=== PATIENT | male | born 1940 ===

== ENCOUNTER 2017-12-11 11:44 | Day surgery (SDC) | payer MEDICARE ==
[2017-12-11] MEDS ORDERED: Lidocaine Hydrochloride 10 ML INJ ONE (13:07)
[2017-12-11] MEDS ORDERED: ceFAZolin 1 gm in NS 1 GM/100 ML BAG IVPB ONE (13:07)
[2017-12-11] MEDS ORDERED: Bupivacaine 0.25% 20 ML INJ IJ ONE (13:08)
[2017-12-11] MEDS ORDERED: Propofol 10 mg/ml Inj (20 ML) ONE (13:51)
[2017-12-11] MEDS ORDERED: Midazolam 2 MG/2 ML VIAL ONE (13:51)
[2017-12-11] MEDS ORDERED: Bacitracin 500 Units/gm Oint Foilpak UD ONE (14:07)
[2017-12-11] MEDS ORDERED: HYDROmorphone 0.5 mg/0.5 ml ISec IVP PRN (14:12)
[2017-12-11] MEDS ORDERED: Oxycodone/Acetaminophen 5/325 mg Tab PO PRN (14:49)
[2017-12-11 15:06] VITALS: RESP 10
[2017-12-11 16:00] VITALS: BP 132/64; PULSE 58; TEMP 97.7; O2SAT 99
--- NOTE | 2017-12-12 11:07 | OP ---
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 POSTOPERATIVE DIAGNOSIS: A 5 cm soft tissue tumor in the left leg. PROCEDURE PERFORMED: Wide and deep excision (radical resection), 5 cm soft tissue tumor of the left leg with advancement flap closure. SURGEON: Petey Arredondo MD ANESTHESIA: General. BLOOD LOSS: 40 mL. POSTOPERATIVE CONDITION: Stable. INDICATIONS FOR SURGERY: A 77-year-old male with a painful 5 cm soft tissue mass of the left leg, who now undergoes a wide deep and radical resection. DESCRIPTION OF PROCEDURE: The patient was taken to the operating room. IV sedation was administered, and the left lower extremity was prepped and draped. Local anesthesia was administered, and a generous elliptical incision was made surrounding the mass. This was carried down into the fascial layer. The mass was completely removed into the fascial layer. Bleeding was controlled using the Bovie. A larger bleeding blood vessel was isolated and repaired with Prolene. The wound was then irrigated with saline. A generous full-thickness tissue flaps were raised including fascia. Counter incisions were made, and a 32 sq cm advancement flap closure was performed using multiple layers of Monocryl, subcuticular Monocryl, and skin clips. The patient tolerated the procedure well and returned to recovery room in stable condition. Petey Arredondo MD
== END 2017-12-11 16:00 | disposition home or self-care (01) ==
LOC: C.SDS 11:44
PROVIDERS: ATTEND Surgery
DX: B07.9 Viral wart, unspecified (principal)
CPT/HCPCS: 11406; 13121; 13122; 82948; 88305; J0690; J2250; J2704; J3010

== ENCOUNTER 2018-01-29 11:53 | Inpatient (IN) | payer MEDICARE ==
[2018-01-29 11:53] VITALS: BMI 30.2
--- NOTE | 2018-01-29 12:36 | C.PDOC ---
History Of Present Illness 77 y/o male with a PMHx peripheral vascular disease, presents to the ED for evaluation of bilateral lower extremity cellulitis after failing outpatient treatment. Patient is followed by Dr. Garrett, who sent patient to the ED for admission and IV antibiotics. Otherwise patient denies any fever, chills, nausea, vomiting, chest pain, or SOB. Patient denies hx of hypertension or diabetes. Time Seen by Provider: 01/29/18 12:31 Chief Complaint (Nursing): Lower Extremity Problem/Injury History Per: Patient History/Exam Limitations: no limitations Onset/Duration Of Symptoms: Days Current Symptoms Are (Timing): Still Present Past Medical History Reviewed: Historical Data, Nursing Documentation, Vital Signs Vital Signs: Last Vital Signs Temp 98.3 F 01/29/18 11:59 Pulse 60 01/29/18 11:59 Resp 18 01/29/18 11:59 BP 174/75 H 01/29/18 11:59 Pulse Ox 100 01/29/18 11:59 - Medical History PMH: HTN, Hypercholesterolemia, Peripheral Edema Denies: Diabetes, Chronic Kidney Disease Family History: States: No Known Family Hx Review Of Systems Except As Marked, All Systems Reviewed And Found Negative. Constitutional: Negative for: Fever, Chills Cardiovascular: Negative for: Chest Pain Respiratory: Negative for: Shortness of Breath Gastrointestinal: Negative for: Nausea, Vomiting Musculoskeletal: Positive for: Leg Pain Skin: Positive for: Rash (bilateral lower extremity cellulitis) Neurological: Negative for: Weakness, Numbness Physical Exam - Physical Exam Appears: Non-toxic, No Acute Distress, Other (Obese male) Skin: Warm, Dry Head: Atraumatic, Normacephalic Eye(s): bilateral: Normal Inspection, PERRL, EOMI Oral Mucosa: Moist Neck: Normal ROM Chest: Symmetrical Cardiovascular: Rhythm Regular, No Murmur Respiratory: Normal Breath Sounds, No Rales, No Rhonchi, No Wheezing Gastrointestinal/Abdominal: Soft, No Tenderness, No Distention Extremity: Normal ROM, No Calf Tenderness, No Deformity, Other (Scaly skin changes to the bilateral lower extremities, poorly defined DP pulses) Neurological/Psych: Oriented x3, Normal Speech Gait: Steady ED Course And Treatment O2 Sat by Pulse Oximetry: 100 (RA) Pulse Ox Interpretation: Normal Medical Decision Making Medical Decision Making: Impression: Bilateral LE cellulitis Plan: Blood work, EKG, and CXR ordered and reviewed. Patient admitted under Dr. Arredondo for cellulitis, failed outpatient therapy. Disposition Discussed With Dr.: Petey Arredondo - Disposition Disposition: HOSPITALIZED Disposition Time: 12:45 Condition: GUARDED - Clinical Impression Clinical Impression: Cellulitis of both lower extremities - Scribe Statement The provider has reviewed the documentation as recorded by the Pascale Peguero Provider Attestation: All medical record entries made by the Norbertibsanty were at my direction and personally dictated by me. I have reviewed the chart and agree that the record accurately reflects my personal performance of the history, physical exam, medical decision making, and the department course for this patient. I have also personally directed, reviewed, and agree with the discharge instructions and disposition. Decision To Admit - Pt Status Changed To: Hospital Disposition Of: Inpatient - Admit Certification Admit to Inpatient:: After my assessment, the patient will require hospitalization for at least two midnights. This is because of the severity of symptoms shown, intensity of services needed, and/or the medical risk in this patient being treated as an outpatient. - InPatient: Physician Admission Certification: I certify that this patient requires 2 or more midnights of care for the following reason:: patient admitted for cellulitis lower extremities for IV antibiotics and further management - . Bed Request Type: Regular Patient Diagnosis: Cellulitis of both lower extremities
[2018-01-29 12:52] LABS: BASO # 0.1 K/uL (0.0-0.2); BASO % 1.2 % (0.0-2.0); EOS # 0.3 K/uL (0.0-0.7); EOS % 4.3 % (0.0-4.0); HEMOGLOBIN 11.6 g/dL (12.0-18.0); LYMPH # 1.2 K/uL (1.0-4.3); LYMPH % 19.9 % (20.0-40.0); MEAN CELL VOLUME 82.1 fL (80.0-94.0); MEAN CORPUSCULAR HEMOGLOBIN 26.6 pg (27.0-31.0); MEAN CORPUSCULAR HGB CONC 32.4 g/dL (33.0-37.0); MEAN PLATELET VOLUME 8.6 fL (7.2-11.7); MONO # 0.6 K/uL (0.0-0.8); MONO % 10.2 % (0.0-10.0); NEUT % 64.4 % (50.0-75.0); RBC 4.37 Mil/uL (4.40-5.90); RED CELL DISTRIBUTION WIDTH 17.9 % (11.5-14.5); WHITE BLOOD COUNT 6.2 K/uL (4.8-10.8)
[2018-01-29 13:11] LABS: INR 1.1; PROTHROMBIN TIME 11.6 SECONDS (9.7-12.2)
[2018-01-29 13:20] LABS: ALB/GLOB RATIO 1.2 (1.0-2.1); ALBUMIN 4.1 g/dL (3.5-5.0); ALT/SGPT 21 U/L (21-72); AST/SGOT 23 U/L (17-59); BLOOD UREA NITROGEN 18 mg/dL (9-20); CALCIUM 9.3 mg/dl (8.6-10.4); GFR NON-AFRICAN AMERICAN 58
[2018-01-29 14:00] VITALS: RESP 20
--- NOTE | 2018-01-29 15:13 | RAD ---
Date of service: 01/29/2018 HISTORY: Sepsis Patient COMPARISON: No prior. FINDINGS: LUNGS: The wrong [place] are vascular markings appear borderline prominent the right lung base-however this also projects over an anterior 6th rib and posterior 9th rib-and some summation of all of these osseous structures long with the bronchovascular markings can conceivably contribute to this appearance. Given the history the possibility of a patchy small infiltrate here also needs to be considered. No dense consolidation seen. PLEURA: No significant pleural effusion identified, no pneumothorax apparent. CARDIOVASCULAR: There is presence of aortic atherosclerotic calcification on x-ray. Normal cardiac size. No pulmonary vascular congestion. OSSEOUS STRUCTURES: Thoracic spondylosis. VISUALIZED UPPER ABDOMEN: Normal. OTHER FINDINGS: None. IMPRESSION: Possible trace patchy infiltrate right lung base versus summation effects. Clinical follow-up recommended.
--- NOTE | 2018-01-29 15:30 | CP.PCM.CON ---
History of Present Illness - History of Present Illness History of Present Illness: PGY-1 Medicine Consult Note for Dr. Spaulding Mr. Croft is a 77 year old male PMH hypertension, diabetes, BPH, Alzheimer's, depression, H. pylori consulted for medical clearance for debridement of bilateral LE wounds. Chronic skin changes over the patient's bilateral shins started 2-3 months ago per patient, but over the last year per family. They started to "bubble" 2 months ago, and when they burst would exude minor amounts of pus and blood before scabbing over. Dr. Arredondo did an excisional biopsy of one such wound on 12/11/17. Patient went to Dr. Arredondo's for follow up today, and was sent to the ED for admission for debridement, possible cellulitis. Patient has multiple places where wound is open since he will scratch until the area bleeds, scabs over, and the cycle repeats. Admits to swollen ankles is the skin on his shins worsened. Denies pain, burning, numbness/tingling of the area. Denies fever, headache, chest paint, shortness of breath, abdominal pain, nausea, vomiting, constipation, diarrhea. PMH: HTN, DM, BPH, Alzheimer's, depression, H. pylori (completed triple therapy earlier this month) Med: Losartan/HCTZ 50/12.5 po daily, ASA 81mg po daily, donepezil 10mg po daily, Lexapro 10mg po daily, finasteride 5mg po daily, metoprolol 50mg po bid, simvastatin 40mg po HS, glimepiride 1mg po bid, pantoprazole 40mg po daily All: NKDA FamHx: unknown PSxHx: denies SocHx: denies ever alcohol, illicit drugs. Smoked 1 pack per month from ages 10- 23 (quit over 50 years ago). 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 Lives in apartment with daughter, son-in-law, two grandsons. Review of Systems - Constitutional Constitutional: absent: Fatigue, Fever, Headache, Lethargy, Malaise, Night Sweats, Weakness - EENT Eyes: absent: Blind Spots, Blurred Vision, Diplopia Ears: absent: Decreased Hearing, Tinnitus Nose/Mouth/Throat: absent: Epistaxis, Dysphagia, Odynophagia - Cardiovascular Cardiovascular: Pedal Edema. absent: Chest Pain, Chest Pain at Rest, Dyspnea, Irregular Heart Rhythm, Pain Radiating to Arm/Neck/Jaw, Lightheadedness, Paroxysmal Nocturnal Dyspnea, Syncope - Respiratory Respiratory: absent: Cough, Dyspnea - Gastrointestinal Gastrointestinal: absent: Abdominal Pain, Constipation, Diarrhea, Nausea, Vomiting - Genitourinary Genitourinary: absent: Change in Urinary Stream, Dysuria, Urinary Incontinence, Urinary Frequency, Urinary Hesitance, Urinary Urgency - Musculoskeletal Musculoskeletal: Arthralgias. absent: Myalgias, Neck Pain, Numbness, Tingling - Integumentary Integumentary: Bleeding Lesions, Dry Skin, Pruritus - Neurological Neurological: absent: Numbness, Headaches, Syncope, Tingling - Psychiatric Psychiatric: absent: Anxiety, Depression, Hopelessness - Endocrine Endocrine: absent: Fatigue, Flushing, Palpitations Past Patient History - Infectious Disease Hx of Infectious Diseases: None - Past Medical History & Family History Past Medical History?: Yes Pertinent Family History: unknown - Past Social History Smoking Status: Former Smoker Alcohol: None Drugs: Denies - CARDIAC Hx Hypercholesterolemia: Yes Hx Hypertension: Yes Hx Peripheral Edema: Yes - PULMONARY Hx Respiratory Disorders: No - NEUROLOGICAL Hx Neurological Disorder: Yes (Memory loss) - HEENT Hx HEENT Problems: Yes Hx Cataracts: Yes - RENAL Hx Chronic Kidney Disease: No - ENDOCRINE/METABOLIC Hx Endocrine Disorders: Yes Hx Diabetes Mellitus Type 2: Yes - HEMATOLOGICAL/ONCOLOGICAL Hx Blood Disorders: No - INTEGUMENTARY Hx Dermatological Problems: Yes (Both legs knee to ankle scabbed pruritic areas) - MUSCULOSKELETAL/RHEUMATOLOGICAL Hx Musculoskeletal Disorders: Yes Hx Back Pain: Yes Hx Herniated Disk: Yes (Lumbar) - GASTROINTESTINAL Hx Gastrointestinal Disorders: No - GENITOURINARY/GYNECOLOGICAL Hx Genitourinary Disorders: Yes Hx Prostate Problems: Yes (BPH) - PSYCHIATRIC Hx Psychophysiologic Disorder: No Hx Substance Use: No - SURGICAL HISTORY Hx Surgeries: Yes Other/Comment: Back surgery due to abscess - ANESTHESIA Hx Anesthesia: Yes Hx Anesthesia Reactions: No Hx Malignant Hyperthermia: No Meds Allergies/Adverse Reactions: Allergies Allergy/AdvReac Type Severity Reaction Status Date / Time No Known Allergies Allergy Verified 12/05/17 13:22 Physical Exam - Constitutional Appears: Well, No Acute Distress - Head Exam Head Exam: ATRAUMATIC, NORMOCEPHALIC - Eye Exam Eye Exam: EOMI, Normal appearance, PERRL Pupil Exam: NORMAL ACCOMODATION Additional comments: arcus senilis, glasses - ENT Exam ENT Exam: Mucous Membranes Moist - Respiratory Exam Respiratory Exam: Clear to Auscultation Bilateral, NORMAL BREATHING PATTERN. absent: Rales, Rhonchi, Wheezes - Cardiovascular Exam Cardiovascular Exam: REGULAR RHYTHM, +S1, +S2. absent: Gallop, Rubs, Systolic Murmur - GI/Abdominal Exam GI & Abdominal Exam: Distended, Normal Bowel Sounds, Soft. absent: Guarding, Rebound, Tenderness Additional comments: obese - Extremities Exam Extremities exam: Positive for: normal capillary refill, pedal edema, pedal pulses present. Negative for: calf tenderness Additional comments: peripheral pulses palpable bilaterally (radial, DP, PT) bilateral ankle swelling - Back Exam Back exam: absent: CVA tenderness (L), CVA tenderness (R) - Neurological Exam Neurological exam: Alert, CN II-XII Intact, Normal Gait, Oriented x3, Reflexes Normal - Psychiatric Exam Psychiatric exam: Normal Affect, Normal Mood - Skin Skin Exam: Dry, Warm Additional comments: chronic skin changes in bilateral shins R>L right leg: anterior surface only effected. obvious bleeding wounds where patient admits to scratching off scabs left leg: anterior and lateral surfaces with minimal posterior effected. biopsy site healing well with new keratinization. obvious bleeding wounds where patient admits to scratching off scabs Results - Vital Signs Recent Vital Signs: Last Vital Signs Temp 97.5 F L 01/29/18 14:00 Pulse 61 01/29/18 14:00 Resp 20 01/29/18 14:00 BP 167/73 H 01/29/18 14:00 Pulse Ox 96 01/29/18 14:00 - Labs Result Diagrams: 01/29/18 12:45 01/29/18 12:45 Labs: Laboratory Results - last 24 hr 01/29/18 01/29/18 01/29/18 12:45 12:45 12:45 WBC 6.2 RBC 4.37 L Hgb 11.6 L Hct 35.9 MCV 82.1 D MCH 26.6 L MCHC 32.4 L RDW 17.9 H Plt Count 221 MPV 8.6 Neut % (Auto) 64.4 Lymph % (Auto) 19.9 L Mcminn % (Auto) 10.2 H Eos % (Auto) 4.3 H Baso % (Auto) 1.2 Neut # (Auto) 4.0 Lymph # (Auto) 1.2 Mcminn # (Auto) 0.6 Eos # (Auto) 0.3 Baso # (Auto) 0.1 PT 11.6 INR 1.1 APTT 34 Sodium 140 Potassium 4.4 Chloride 105 Carbon Dioxide 25 Anion Gap 14 BUN 18 Creatinine 1.2 Est GFR ( Amer) > 60 Est GFR (Non-Af Amer) 58 Random Glucose 89 Calcium 9.3 Phosphorus 3.4 Magnesium 1.9 Total Bilirubin 0.5 AST 23 ALT 21 Alkaline Phosphatase 101 Total Protein 7.7 Albumin 4.1 Globulin 3.6 Albumin/Globulin Ratio 1.2 - EKG Data EKG Interpreted by: ER Physician EKG shows normal: Sinus rhythm Rate: Normal Assessment & Plan - Assessment and Plan (Free Text) Assessment: 77yo male PMH HTN, DM, BPH, Alzheimer's, depression, H. pylori consulted for medical clearance for debridement of bilateral LE wounds. Plan: Bilateral leg wounds, possible cellulitis - all surgical management per Dr. Arredondo - Cardio consulted: Dr. Miguelangel burr appreciated - due to age, Hx HTN, DM, and no access to previous workup will need ECHO and Lexiscan stress test prior to medical clearance - NPO@[place] for Lexiscan stress test (01/30) - Cefazolin 1000mg IVPB q8 (started 01/29) Hypertension - home Hyzaar split into losartan 50mg po daily and HCTZ 12.5mg po daily - home metoprolol 50mg po bid - monitor vitals Diabetes Mellitus - home glimepiride 1mg po bid - home Simvastatin 40mg -> Crestor 10mg po HS - Accucheck ACHS - ISS - hypoglycemia protocol BPH - home finasteride 5mg po daily Alzheimer's dementia - home donepezil 10mg po daily Depression - home Lexapro 10mg po daily PPx - DVT: CI d/t surgery and chronic LE skin changes - GI: home Protonix 40mg po daily - Diet: HHD, NPO@[place] for Lexiscan stress test d/w Dr. Chelly Marshall PGY-1 - Date & Time Date: 01/29/18 Time: 15:00
[2018-01-29] MEDS ORDERED: Dextrose 50% SYRINGE Inj (50 ml) IV PRN (15:40)
[2018-01-29] MEDS ORDERED: Glucagon Recombinant 1 mg Inj IM PRN (15:40)
[2018-01-29] MEDS: (Novolin R) Insulin Human Regular 100 units/ml vial SC SCH ×2 (17:45→22:27)
--- NOTE | 2018-01-29 22:34 | CP.PCM.CON ---
History of Present Illness - History of Present Illness History of Present Illness: CC: Pre Op Cardiac risk assessment Mr. Croft is a 77 year old male PMH hypertension, diabetes, BPH, Alzheimer's, depression, H. pylori consulted for medical clearance for debridement of bilateral LE wounds. Chronic skin changes over the patient's bilateral shins started 2-3 months ago per patient, but over the last year per family. They started to "bubble" 2 months ago, and when they burst would exude minor amounts of pus and blood before scabbing over. Dr. Arredondo did an excisional biopsy of one such wound on 12/11/17. Patient went to Dr. Arredondo's for follow up today, and was sent to the ED for admission for debridement, possible cellulitis. Patient has multiple places where wound is open since he will scratch until the area bleeds, scabs over, and the cycle repeats. Admits to swollen ankles is the skin on his shins worsened. Denies pain, burning, numbness/tingling of the area. Denies fever, headache, chest paint, shortness of breath, abdominal pain, nausea, vomiting, constipation, diarrhea. PMH: HTN, DM, BPH, Alzheimer's, depression, H. pylori (completed triple therapy earlier this month) Med: Losartan/HCTZ 50/12.5 po daily, ASA 81mg po daily, donepezil 10mg po daily, Lexapro 10mg po daily, finasteride 5mg po daily, metoprolol 50mg po bid, simvastatin 40mg po HS, glimepiride 1mg po bid, pantoprazole 40mg po daily All: NKDA FamHx: unknown PSxHx: denies SocHx: denies ever alcohol, illicit drugs. Smoked 1 pack per month from ages 10- 23 (quit over 50 years ago). 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 Lives in apartment with daughter, son-in-law, two grandsons. Review of Systems - Constitutional Constitutional: absent: Fatigue, Fever, Headache, Lethargy, Malaise, Night Sweats, Weakness - EENT Eyes: absent: Blind Spots, Blurred Vision, Diplopia Ears: absent: Decreased Hearing, Tinnitus Nose/Mouth/Throat: absent: Epistaxis, Dysphagia, Odynophagia - Cardiovascular Cardiovascular: Pedal Edema. absent: Chest Pain, Chest Pain at Rest, Dyspnea, Irregular Heart Rhythm, Pain Radiating to Arm/Neck/Jaw, Lightheadedness, Paroxysmal Nocturnal Dyspnea, Syncope - Respiratory Respiratory: absent: Cough, Dyspnea - Gastrointestinal Gastrointestinal: absent: Abdominal Pain, Constipation, Diarrhea, Nausea, Vomiting - Genitourinary Genitourinary: absent: Change in Urinary Stream, Dysuria, Urinary Incontinence, Urinary Frequency, Urinary Hesitance, Urinary Urgency - Musculoskeletal Musculoskeletal: Arthralgias. absent: Myalgias, Neck Pain, Numbness, Tingling - Integumentary Integumentary: Bleeding Lesions, Dry Skin, Pruritus - Neurological Neurological: absent: Numbness, Headaches, Syncope, Tingling - Psychiatric Psychiatric: absent: Anxiety, Depression, Hopelessness - Endocrine Endocrine: absent: Fatigue, Flushing, Palpitations Past Patient History - Infectious Disease Hx of Infectious Diseases: None - Past Medical History & Family History Past Medical History?: Yes Pertinent Family History: unknown - Past Social History Smoking Status: Former Smoker Alcohol: None Drugs: Denies - CARDIAC Hx Hypercholesterolemia: Yes Hx Hypertension: Yes Hx Peripheral Edema: Yes - PULMONARY Hx Respiratory Disorders: No - NEUROLOGICAL Hx Neurological Disorder: Yes (Memory loss) - HEENT Hx HEENT Problems: Yes Hx Cataracts: Yes - RENAL Hx Chronic Kidney Disease: No - ENDOCRINE/METABOLIC Hx Endocrine Disorders: Yes Hx Diabetes Mellitus Type 2: Yes - HEMATOLOGICAL/ONCOLOGICAL Hx Blood Disorders: No - INTEGUMENTARY Hx Dermatological Problems: Yes (Both legs knee to ankle scabbed pruritic areas) - MUSCULOSKELETAL/RHEUMATOLOGICAL Hx Musculoskeletal Disorders: Yes Hx Back Pain: Yes Hx Herniated Disk: Yes (Lumbar) - GASTROINTESTINAL Hx Gastrointestinal Disorders: No - GENITOURINARY/GYNECOLOGICAL Hx Genitourinary Disorders: Yes Hx Prostate Problems: Yes (BPH) - PSYCHIATRIC Hx Psychophysiologic Disorder: No Hx Substance Use: No - SURGICAL HISTORY Hx Surgeries: Yes Other/Comment: Back surgery due to abscess - ANESTHESIA Hx Anesthesia: Yes Hx Anesthesia Reactions: No Hx Malignant Hyperthermia: No Meds Allergies/Adverse Reactions: Allergies Allergy/AdvReac Type Severity Reaction Status Date / Time No Known Allergies Allergy Verified 12/05/17 13:22 Physical Exam - Constitutional Appears: Well, No Acute Distress - Head Exam Head Exam: ATRAUMATIC, NORMOCEPHALIC - Eye Exam Eye Exam: EOMI, Normal appearance, PERRL Pupil Exam: NORMAL ACCOMODATION Additional comments: arcus senilis, glasses - ENT Exam ENT Exam: Mucous Membranes Moist - Respiratory Exam Respiratory Exam: Clear to Auscultation Bilateral, NORMAL BREATHING PATTERN. absent: Rales, Rhonchi, Wheezes - Cardiovascular Exam Cardiovascular Exam: REGULAR RHYTHM, +S1, +S2. absent: Gallop, Rubs, Systolic Murmur - GI/Abdominal Exam GI & Abdominal Exam: Distended, Normal Bowel Sounds, Soft. absent: Guarding, Rebound, Tenderness Additional comments: obese - Extremities Exam Extremities exam: Positive for: normal capillary refill, pedal edema, pedal pulses present. Negative for: calf tenderness Additional comments: peripheral pulses palpable bilaterally (radial, DP, PT) bilateral ankle swelling - Back Exam Back exam: absent: CVA tenderness (L), CVA tenderness (R) - Neurological Exam Neurological exam: Alert, CN II-XII Intact, Normal Gait, Oriented x3, Reflexes Normal - Psychiatric Exam Psychiatric exam: Normal Affect, Normal Mood - Skin Skin Exam: Dry, Warm Additional comments: chronic skin changes in bilateral shins R>L right leg: anterior surface only effected. obvious bleeding wounds where patient admits to scratching off scabs left leg: anterior and lateral surfaces with minimal posterior effected. biopsy site healing well with new keratinization. obvious bleeding wounds where patient admits to scratching off scabs Results - Vital Signs Recent Vital Signs: Last Vital Signs Temp 97.5 F L 01/29/18 14:00 Pulse 61 01/29/18 14:00 Resp 20 01/29/18 14:00 BP 167/73 H 01/29/18 14:00 Pulse Ox 96 01/29/18 14:00 - Labs Result Diagrams: 01/29/18 12:45 01/29/18 12:45 Labs: Laboratory Results - last 24 hr 01/29/18 01/29/18 01/29/18 12:45 12:45 12:45 WBC 6.2 RBC 4.37 L Hgb 11.6 L Hct 35.9 MCV 82.1 D MCH 26.6 L MCHC 32.4 L RDW 17.9 H Plt Count 221 MPV 8.6 Neut % (Auto) 64.4 Lymph % (Auto) 19.9 L [place] % (Auto) 10.2 H Eos % (Auto) 4.3 H Baso % (Auto) 1.2 Neut # (Auto) 4.0 Lymph # (Auto) 1.2 [place] # (Auto) 0.6 Eos # (Auto) 0.3 Baso # (Auto) 0.1 PT 11.6 INR 1.1 APTT 34 Sodium 140 Potassium 4.4 Chloride 105 Carbon Dioxide 25 Anion Gap 14 BUN 18 Creatinine 1.2 Est GFR ( Amer) > 60 Est GFR (Non-Af Amer) 58 Random Glucose 89 Calcium 9.3 Phosphorus 3.4 Magnesium 1.9 Total Bilirubin 0.5 AST 23 ALT 21 Alkaline Phosphatase 101 Total Protein 7.7 Albumin 4.1 Globulin 3.6 Albumin/Globulin Ratio 1.2 - EKG Data EKG Interpreted by: ER Physician EKG shows normal: Sinus rhythm Rate: Normal Assessment & Plan - Assessment and Plan (Free Text) Assessment: 77yo male PMH HTN, DM, BPH, Alzheimer's, depression, H. pylori consulted for medical clearance for debridement of bilateral LE wounds. Plan: Bilateral leg wounds, possible cellulitis - all surgical management per Dr. Arredondo - due to age, Hx HTN, DM, and no access to previous workup will need ECHO and Lexiscan stress test prior to medical clearance - NPO@[place] for Lexiscan stress test (01/30) - Cefazolin 1000mg IVPB q8 (started 01/29) Hypertension - home Hyzaar split into losartan 50mg po daily and HCTZ 12.5mg po daily - home metoprolol 50mg po bid - monitor vitals Diabetes Mellitus - home glimepiride 1mg po bid - home Simvastatin 40mg -> Crestor 10mg po HS - Accucheck ACHS - ISS - hypoglycemia protocol BPH - home finasteride 5mg po daily Alzheimer's dementia - home donepezil 10mg po daily Depression - home Lexapro 10mg po daily PPx - DVT: CI d/t surgery and chronic LE skin changes - GI: home Protonix 40mg po daily - Diet: HHD, NPO@[place] for Lexiscan stress testCC Past Patient History - Infectious Disease Hx of Infectious Diseases: None - Past Medical History & Family History Past Medical History?: Yes - Past Social History Smoking Status: Former Smoker Alcohol: None Drugs: Denies - CARDIAC Hx Hypercholesterolemia: Yes Hx Hypertension: Yes Hx Peripheral Edema: Yes - PULMONARY Hx Respiratory Disorders: No - NEUROLOGICAL Hx Neurological Disorder: Yes (Memory loss) - HEENT Hx HEENT Problems: Yes Hx Cataracts: Yes - RENAL Hx Chronic Kidney Disease: No - ENDOCRINE/METABOLIC Hx Endocrine Disorders: Yes Hx Diabetes Mellitus Type 2: Yes - HEMATOLOGICAL/ONCOLOGICAL Hx Blood Disorders: No - INTEGUMENTARY Hx Dermatological Problems: Yes (Both legs knee to ankle scabbed pruritic areas) - MUSCULOSKELETAL/RHEUMATOLOGICAL Hx Musculoskeletal Disorders: Yes Hx Back Pain: Yes Hx Herniated Disk: Yes (Lumbar) - GASTROINTESTINAL Hx Gastrointestinal Disorders: No - GENITOURINARY/GYNECOLOGICAL Hx Genitourinary Disorders: Yes Hx Prostate Problems: Yes (BPH) - PSYCHIATRIC Hx Psychophysiologic Disorder: No Hx Substance Use: No - SURGICAL HISTORY Hx Surgeries: Yes Other/Comment: Back surgery due to abscess - ANESTHESIA Hx Anesthesia: Yes Hx Anesthesia Reactions: No Hx Malignant Hyperthermia: No Meds Allergies/Adverse Reactions: Allergies Allergy/AdvReac Type Severity Reaction Status Date / Time No Known Allergies Allergy Verified 12/05/17 13:22 - Medications Medications: Current Medications Aspirin (Aspirin Chewable) 81 mg PO DAILY [facility] Dextrose (Dextrose 50% Inj) 0 ml IV STAT PRN; Protocol PRN Reason: Hypoglycemia Protocol Dextrose (Glutose 15) 0 gm PO ONCE PRN; Protocol PRN Reason: Hypoglycemia Protocol Donepezil HCl (Aricept) 10 mg PO DAILY [facility] Escitalopram Oxalate (Lexapro) 10 mg PO DAILY [facility] Finasteride (Proscar) 5 mg PO DAILY [facility] Glimepiride (Amaryl) 1 mg PO BID [facility] Last Admin: 01/29/18 17:46 Dose: 1 mg Glucagon (Glucagen Diagnostic Kit) 0 mg IM STAT PRN; Protocol PRN Reason: Hypoglycemia Protocol Hydrochlorothiazide (Microzide) 12.5 mg PO DAILY [facility] Dextrose (Dextrose 5% In Water 1000 Ml) 1,000 mls @ 0 mls/hr IV .Q0M PRN; Protocol PRN Reason: Hypoglycemia Protocol Cefazolin Sodium 1,000 mg/ (Sodium Chloride) 50 mls @ 100 mls/hr IVPB Q8H [facility]; Protocol Last Admin: 01/29/18 17:51 Dose: 100 mls/hr Insulin Human Regular (Novolin R) 0 unit SC ACHS [facility]; Protocol Last Admin: 01/29/18 22:27 Dose: Not Given Losartan Potassium (Cozaar) 50 mg PO DAILY [facility] Metoprolol Tartrate (Lopressor) 50 mg PO BID [facility] Last Admin: 01/29/18 17:46 Dose: 50 mg Pantoprazole Sodium (Protonix Ec Tab) 40 mg PO DAILY [facility] Rosuvastatin Calcium (Crestor) 10 mg PO HS [facility] Last Admin: 01/29/18 21:53 Dose: 10 mg Results - Vital Signs Recent Vital Signs: Last Vital Signs Temp 97.9 F 01/29/18 16:00 Pulse 57 L 01/29/18 16:00 Resp 20 01/29/18 16:15 BP 176/85 H 01/29/18 16:00 Pulse Ox 96 01/29/18 16:00 - Labs Result Diagrams: 01/29/18 12:45 01/29/18 12:45 Labs: Laboratory Results - last 24 hr 01/29/18 01/29/18 01/29/18 12:45 12:45 12:45 WBC 6.2 RBC 4.37 L Hgb 11.6 L Hct 35.9 MCV 82.1 D MCH 26.6 L MCHC 32.4 L RDW 17.9 H Plt Count 221 MPV 8.6 Neut % (Auto) 64.4 Lymph % (Auto) 19.9 L [place] % (Auto) 10.2 H Eos % (Auto) 4.3 H Baso % (Auto) 1.2 Neut # (Auto) 4.0 Lymph # (Auto) 1.2 [place] # (Auto) 0.6 Eos # (Auto) 0.3 Baso # (Auto) 0.1 PT 11.6 INR 1.1 APTT 34 Sodium 140 Potassium 4.4 Chloride 105 Carbon Dioxide 25 Anion Gap 14 BUN 18 Creatinine 1.2 Est GFR ( Amer) > 60 Est GFR (Non-Af Amer) 58 POC Glucose (mg/dL) Random Glucose 89 Calcium 9.3 Phosphorus 3.4 Magnesium 1.9 Total Bilirubin 0.5 AST 23 ALT 21 Alkaline Phosphatase 101 Total Protein 7.7 Albumin 4.1 Globulin 3.6 Albumin/Globulin Ratio 1.2 01/29/18 01/29/18 17:02 21:55 WBC RBC Hgb Hct MCV MCH MCHC RDW Plt Count MPV Neut % (Auto) Lymph % (Auto) [place] % (Auto) Eos % (Auto) Baso % (Auto) Neut # (Auto) Lymph # (Auto) [place] # (Auto) Eos # (Auto) Baso # (Auto) PT INR APTT Sodium Potassium Chloride Carbon Dioxide Anion Gap BUN Creatinine Est GFR ( Amer) Est GFR (Non-Af Amer) POC Glucose (mg/dL) 123 H 101 Random Glucose Calcium Phosphorus Magnesium Total Bilirubin AST ALT Alkaline Phosphatase Total Protein Albumin Globulin Albumin/Globulin Ratio
[2018-01-30 07:23] LABS: BASO # 0.1 K/uL (0.0-0.2); BASO % 0.9 % (0.0-2.0); EOS # 0.3 K/uL (0.0-0.7); EOS % 4.9 % (0.0-4.0); HEMOGLOBIN 10.4 g/dL (12.0-18.0); LYMPH # 1.6 K/uL (1.0-4.3); LYMPH % 23.9 % (20.0-40.0); MEAN CELL VOLUME 82.3 fL (80.0-94.0); MEAN CORPUSCULAR HEMOGLOBIN 26.4 pg (27.0-31.0); MEAN CORPUSCULAR HGB CONC 32.1 g/dL (33.0-37.0); MEAN PLATELET VOLUME 8.9 fL (7.2-11.7); MONO # 0.7 K/uL (0.0-0.8); NEUT % 60.3 % (50.0-75.0); RBC 3.95 Mil/uL (4.40-5.90); RED CELL DISTRIBUTION WIDTH 17.7 % (11.5-14.5); WHITE BLOOD COUNT 6.6 K/uL (4.8-10.8)
[2018-01-30 07:44] LABS: ALB/GLOB RATIO 1.1 (1.0-2.1); ALBUMIN 3.3 g/dL (3.5-5.0); ALT/SGPT 24 U/L (21-72); AST/SGOT 22 U/L (17-59); BLOOD UREA NITROGEN 22 mg/dL (9-20); CALCIUM 8.9 mg/dl (8.6-10.4); GFR NON-AFRICAN AMERICAN > 60
[2018-01-30] MEDS: (Novolin R) Insulin Human Regular 100 units/ml vial SC SCH ×2 (07:45→12:08)
--- NOTE | 2018-01-30 09:58 | CP.PCM.PN ---
<Abhinav Vaughan - Last Filed: 01/30/18 13:21> Subjective - Date & Time of Evaluation Date of Evaluation: 01/30/18 Time of Evaluation: 09:53 - Subjective Subjective: Abhinav Vaughan Progress Note for Dr. Spaulding Pt was examined at beside this morning. He reports improvement in the swelling and redness of his legs. He denies any dizziness, chest pain, shortness of breath, abdominal pain, nausea, vomiting, diarrhea, dysuria. Objective - Vital Signs/Intake and Output Vital Signs (last 24 hours): Temp Pulse Resp BP Pulse Ox 97.5 F L 62 20 145/69 99 01/30/18 00:00 01/30/18 00:00 01/30/18 00:00 01/30/18 00:00 01/30/18 00:00 Intake and Output: 01/30/18 01/30/18 06:59 18:59 Intake Total 300 Output Total 600 Balance -300 - Medications Medications: Current Medications Aspirin (Aspirin Chewable) 81 mg PO DAILY [facility] Dextrose (Dextrose 50% Inj) 0 ml IV STAT PRN; Protocol PRN Reason: Hypoglycemia Protocol Dextrose (Glutose 15) 0 gm PO ONCE PRN; Protocol PRN Reason: Hypoglycemia Protocol Donepezil HCl (Aricept) 10 mg PO DAILY [facility] Escitalopram Oxalate (Lexapro) 10 mg PO DAILY [facility] Finasteride (Proscar) 5 mg PO DAILY [facility] Glimepiride (Amaryl) 1 mg PO BID [facility] Last Admin: 01/29/18 17:46 Dose: 1 mg Glucagon (Glucagen Diagnostic Kit) 0 mg IM STAT PRN; Protocol PRN Reason: Hypoglycemia Protocol Hydrochlorothiazide (Microzide) 12.5 mg PO DAILY [facility] Dextrose (Dextrose 5% In Water 1000 Ml) 1,000 mls @ 0 mls/hr IV .Q0M PRN; Protocol PRN Reason: Hypoglycemia Protocol Cefazolin Sodium 1,000 mg/ (Sodium Chloride) 50 mls @ 100 mls/hr IVPB Q8H [facility]; Protocol Last Admin: 01/30/18 08:22 Dose: Not Given Insulin Human Regular (Novolin R) 0 unit SC ACHS [facility]; Protocol Last Admin: 01/30/18 07:45 Dose: Not Given Losartan Potassium (Cozaar) 50 mg PO DAILY [facility] Metoprolol Tartrate (Lopressor) 50 mg PO BID [facility] Last Admin: 01/29/18 17:46 Dose: 50 mg Pantoprazole Sodium (Protonix Ec Tab) 40 mg PO DAILY [facility] Rosuvastatin Calcium (Crestor) 10 mg PO HS [facility] Last Admin: 01/29/18 21:53 Dose: 10 mg - Labs Labs: 01/30/18 07:17 01/30/18 07:17 PT 11.6 SECONDS (9.7-12.2) 01/29/18 12:45 INR 1.1 01/29/18 12:45 APTT 34 SECONDS (21-34) 01/29/18 12:45 - Constitutional Appears: Well, No Acute Distress - Head Exam Head Exam: ATRAUMATIC, NORMOCEPHALIC - Eye Exam Eye Exam: EOMI, Normal appearance, PERRL Pupil Exam: NORMAL ACCOMODATION - ENT Exam ENT Exam: Mucous Membranes Moist - Respiratory Exam Respiratory Exam: Clear to Ausculation Bilateral, NORMAL BREATHING PATTERN. ab sent: Rales, Rhonchi, Wheezes - Cardiovascular Exam Cardiovascular Exam: REGULAR RHYTHM, +S1, +S2. absent: Gallop, Rubs, Murmur - GI/Abdominal Exam GI & Abdominal Exam: Soft, Normal Bowel Sounds. absent: Distended, Firm, Tenderness - Extremities Exam Extremities Exam: Pedal Edema Additional comments: chronic venous stasis changes, xerotic hyperkeratotic plaques, no drainage or surrounding edema - Back Exam Back Exam: NORMAL INSPECTION - Neurological Exam Neurological Exam: Alert, Awake, Oriented x3 - Psychiatric Exam Psychiatric exam: Normal Affect, Normal Mood - Skin Skin Exam: Dry Assessment and Plan - Assessment and Plan (Free Text) Assessment: 77yo male PMH HTN, DM, BPH, Alzheimer's, depression, H. pylori co nsulted for medical clearance for debridement of bilateral LE wounds. ECHO showing normal ejection fraction, pending report for stress test. Plan: B/l LE chronic wounds - Cefazolin 1000mg IVPB q8 (started 01/29) - ECHO: LV nl function and ejection freaction. mild AR, mild MR - f/u Lexiscan report - Cardio consulted: Dr. Means - aminah appreciated - all surgical management per Dr. Arredondo HTN - losartan 50mg po daily - HCTZ 12.5mg po daily - metoprolol 50mg po bid DM - glimepiride 1mg po bid - Crestor 10mg po HS - Accucheck ACHS - ISS - hypoglycemia protocol BPH - finasteride 5mg po daily Alzheimer's dementia - donepezil 10mg po daily Depression - Lexapro 10mg po daily PPx GI: Protonix 40mg po daily DVT: contraindicated this time HHD Pt seen and case discussed with Dr. Spaulding <Carlos Alberto Spaulding Jr. - Last Filed: 02/04/18 15:32> Objective - Vital Signs/Intake and Output Vital Signs (last 24 hours): Temp Pulse Resp BP Pulse Ox 98.2 F 85 20 169/66 H 98 01/30/18 15:58 01/30/18 15:58 01/30/18 15:58 01/30/18 15:58 01/30/18 15:58 - Labs Labs: 01/30/18 07:17 01/30/18 07:17 PT 11.6 SECONDS (9.7-12.2) 01/29/18 12:45 INR 1.1 01/29/18 12:45 APTT 34 SECONDS (21-34) 01/29/18 12:45 Attending/Attestation - Attestation I have personally seen and examined this patient.: Yes I have fully participated in the care of the patient.: Yes I have reviewed all pertinent clinical information, including history, physical exam and plan: Yes Notes (Text): 02/04/18 15:32 reviewed resident note, agree with findings and plan of care.
[2018-01-30] MEDS ORDERED: Home Med 1 UNIT (Valsartan/Hydrochlorothiazide [Valsartan-Hctz 160-12.5 Mg Tab] 1 TAB) PO SCH (10:00)
[2018-01-30] MEDS ORDERED: Pantoprazole 40 mg EC Tab PO SCH (10:00)
--- NOTE | 2018-01-30 12:22 | CARD ---
APPROVED REPORT Date of service: 01/29/2018 EKG Measurement Heart [id number] <Conclusion> Normal sinus rhythm Right bundle branch block Inferior infarct, age undetermined Abnormal ECG
--- NOTE | 2018-01-30 12:51 | CARD ---
APPROVED REPORT Date of service: 01/30/2018 EXAM: Two-dimensional and M-mode echocardiogram with Doppler and color Doppler. Other Information Quality : GoodRhythm : INDICATION Pre-Op 2D DIMENSIONS IVSd1.0 (0.7-1.1cm)Aortic Root (2D)3.7 (2.0-3.7cm) LVDd4.4 (3.9-5.9cm)PWd1.1 (0.7-1.1cm) LA Khmcum78 (18-58mL)LVDs3.0 (2.5-4.0cm) FS (%) 31.9 %LVEF (%)60.2 (>50%) LVEF (Alston's)52.12 %IVC0.00 cm M-Mode DIMENSIONS Left Atrium (MM)4.50 (2.5-4.0cm)IVSd0.81 (0.7-1.1cm) Aortic Root3.61 (2.2-3.7cm)LVDd5.72 (4.0-5.6cm) Aortic Cusp Exc.2.29 (1.5-2.0cm)PWd0.89 (0.7-1.1cm) FS (%) 46 %LVDs3.06 (2.0-3.8cm) LVEF (%)62 (>50%) Aortic Valve AI P 1/2 [id number] Mitral Valve MV E Ecwoxfoe17.6cm/sMV A Nlvqhcgf88.0cm/sE/A ratio1.4 TDI Lateral E' Peak V7.90cm/sMedial E' Peak V6.67cm/sE/Lateral E'11.1 E/Medial E'13.1 Tricuspid Valve TR Peak Jvrqtyhi004ft/sTR Peak Gr.30glRnRBGK66dmTv LEFT VENTRICLE The left ventricle is normal size. There is normal left ventricular wall thickness. The left ventricular function is normal. The left ventricular ejection fraction is within the normal range. No regional wall motion abnormalities noted. The left ventricular diastolic function is normal. No left ventricle thrombus noted on this study. There is no ventricular septal defect visualized. There is no left ventricular aneurysm. There is no mass noted in the left ventricle. RIGHT VENTRICLE The right ventricle is normal size. There is normal right ventricular wall thickness. The right ventricular systolic function is normal. ATRIA The left atrium size is normal. The right atrium size is normal. The interatrial septum is intact with no evidence for an atrial septal defect. AORTIC VALVE The aortic valve is normal in structure and function. There is mild aortic regurgitation. There is no aortic valvular stenosis. There is no aortic valvular vegetation. MITRAL VALVE The mitral valve is normal in structure and function. There is no evidence of mitral valve prolapse. There is no mitral valve stenosis. Mitral regurgitation is mild. TRICUSPID VALVE The tricuspid valve is normal in structure and function. There is no tricuspid valve regurgitation noted. There is no tricuspid valve prolapse or vegetation. There is no tricuspid valve stenosis. PULMONIC VALVE The pulmonary valve is normal in structure and function. There is no pulmonic valvular regurgitation. There is no pulmonic valvular stenosis. GREAT VESSELS The aortic root is normal in size. The ascending aorta is normal in size. The pulmonary artery is normal. The IVC is normal in size and collapses >50% with inspiration. PERICARDIAL EFFUSION The pericardium appears normal. There is no pleural effusion. <Conclusion> The left ventricular function is normal. The left ventricular ejection fraction is within the normal range. No regional wall motion abnormalities noted. There is mild aortic regurgitation. Mitral regurgitation is mild.
[2018-01-30 16:00] VITALS: BP 169/66; PULSE 85; TEMP 98.2; O2SAT 98
--- NOTE | 2018-01-30 22:45 | CARD ---
APPROVED REPORT Date of service: 01/30/2018 Protocol: LEXISCAN Test Type: LEXISCAN STRESS Test Indications: PRE OP Target HR: 141 bpm Resting ECG: nsr,rbbb Resting Heart Rate: 55 bpm Resting Blood Pressure: 128/80mmHg submaximum (85%): 120 bpm TEST SUMMARY PREINFSNHYPERV.07:[id number]/80.0. INFUSIONDOSE 100:300.00.01.062/.0. [id number]/80.0. PROCEDURE Pharmacologic stress testing was performed using 0.4mg per 5ml of regadenoson given intravenously over 7-10 seconds. POST EXERCISE Reason for Termination: Protocol Completed Target HR: No Max HR: 62 bpm 58% of Maximum Predicted HR: 141 bpm Exercise duration: 00:30 min:sec, 0 Stage Exercise capacity: 1.0METs Max Blood Pressure: 130/80mmHg Blood Pressure response to exercise: normal resting BP - appropriate response Heart Rate response to exercise: appropriate Chest Pain: No, none Angina index: 0 Arrhythmia: No, none ST Change: No, none Deviation: 0 mm INTERPRETATION Stress EKG Conclusion: completed lexiscan protocol.tolerated procedure well.normal hr & bp response.no ekg changes.nuclear to follow. EXAM: Myocardial Perfusion REST/STRESS Imaging Protocol The imaging protocol used to acquire images was Rest Tc-99m/stress Tc-99m 1 day Rest Spect myocardial perfusion imaging was performed in supine position 45 minutes following the injection of 13.1 mCi of Tc-99 Myoview. Gated Stress Spect was performed 45 minutes after intravenous 32.5 mCi Tc-99 Myoview injection. The images were gated to evaluate regional wall motion and calculate ventricular ejection fraction.Images were reconstructed using backfilter projection method in short horizontal and verticle long axis. Spect slices were generated. RESTING DATA EDV95.09kgPU1.40L/min ESV36.00mlMyocardial Pwzq760.00g Av. Heart Rate59.00bpm EF62.00% STRESS DATA EDV91.40nvKD1.60L/min ESV29.00mlMyocardial Bkez788.00g EF68.00% Regional WT score at stress:1.00 Regional WM score at stress:0.00 Summed WT score at stress:13.00 Av. Heart Rate57.00bpmSummed WM score at stress:0.00 LV Perf. Quant 17 Seg. SSS1.00 17 Seg. SRS0.00 17 Seg. SDS1.00 Stress Defect Extent (% LAD)0.00Rest Defect Extent (% LAD)0.00Rev. Defect Extent (% LAD)0.00 Stress Defect Extent (% LCX)0.00Rest Defect Extent (% LCX)0.00Rev. Defect Extent (% LCX)0.00 Stress Defect Extent (% RCA)0.00Rest Defect Extent (% RCA)0.00Rev. Defect Extent (% RCA)0.00 Stress Defect Extent (% CHU)0.00Rest Defect Extent (% CHU)0.00Rev. Defect Extent (% CHU)0.00 Other Information Quality:Good Left Ventricle LV Function:Left ventricle systolic function is normal. The Ejection Fraction is >55%. Conclusion 1. Normal Lexiscan Nuclear stress test. Normal EF
== END 2018-01-30 17:55 | disposition left against medical advice (07) | DRG 603 ==
LOC: C.ER 11:53 → C.9E 12:47 → C.3T 13:03
PROVIDERS: ADMIT Surgery; ATTEND Surgery
DX: L03.115 Cellulitis of right lower limb (principal); L03.116 Cellulitis of left lower limb; N40.0 Benign prostatic hyperplasia without lower urinary tract symptoms; Z87.891 Personal history of nicotine dependence; I10 Essential (primary) hypertension; G30.9 Alzheimer's disease, unspecified; F02.80 Dementia in other diseases classified elsewhere, unspecified severity, without behavioral disturbance, psychotic disturbance, mood disturbance, and anxiety; E78.00 Pure hypercholesterolemia, unspecified; E11.51 Type 2 diabetes mellitus with diabetic peripheral angiopathy without gangrene; Z53.21 Procedure and treatment not carried out due to patient leaving prior to being seen by health care provider